=== PATIENT | female | born 1960 | race African-American/Black ===

== ENCOUNTER 2023-04-16 04:19 | Day surgery (SDC) | payer BC, OTHER ==
[2023-04-11 13:24] VITALS: BMI 25.7
[2023-04-16] MEDS ORDERED: MIDAZOLAM HCL 2 MG/2 ML SINGLE DOSE VIAL ONE ×2 (12:11→12:14)
[2023-04-16 12:50] VITALS: PULSE 72
[2023-04-16 14:14] VITALS: BP 138/89; TEMP 97.5
[2023-04-16 14:17] VITALS: RESP 20
[2023-04-16] MEDS ORDERED: ZOLPIDEM TARTRATE 5 MG TABLET PO ONE (22:00)
== END 2023-04-16 14:34 | disposition home or self-care (01) ==
LOC: JASU-SURG 04:19
PROVIDERS: ATTEND Urology
PROC: 0TF4XZZ Fragmentation in Left Kidney Pelvis, External Approach (ICD-10-PCS; principal; 2023-04-16 11:30)
DX: N20.0 Calculus of kidney (principal)

== ENCOUNTER 2023-07-23 04:31 | Day surgery (SDC) | payer BC, OTHER ==
[2023-07-16 12:33] VITALS: BMI 26.2
[2023-07-23] MEDS ORDERED: MIDAZOLAM HCL 2 MG/2 ML SINGLE DOSE VIAL ONE (15:32)
[2023-07-23] MEDS ORDERED: FENTANYL CITRATE/PF 50 MCG/ML VIAL ONE (16:04)
[2023-07-23] MEDS ORDERED: ONDANSETRON 4 MG/2 ML VIAL ONE (16:04)
[2023-07-23] MEDS ORDERED: KETOROLAC TROMETHAMINE 30 MG/1 ML VIAL ONE (16:04)
[2023-07-23 16:44] VITALS: RESP 18
[2023-07-23 17:25] VITALS: BP 98/65; TEMP 98.6
[2023-07-23 17:26] VITALS: PULSE 70
== END 2023-07-23 17:20 | disposition home or self-care (01) ==
LOC: JASU-SURG 04:31
PROVIDERS: ATTEND Urology
PROC: 0TF3XZZ Fragmentation in Right Kidney Pelvis, External Approach (ICD-10-PCS; principal; 2023-07-23 16:00)
DX: N20.0 Calculus of kidney (principal)

== ENCOUNTER 2024-06-15 19:00 | Emergency (ER) | payer BC, OTHER ==
[2024-06-15 19:09] VITALS: RESP 18; BMI 23.3
[2024-06-15] MEDS ORDERED: IBUPROFEN 600 MG TABLET (FP) PO ONE (19:25)
[2024-06-15] MEDS: IBUPROFEN 600 MG TABLET (FP) PO ONE (19:26)
[2024-06-15] MEDS ORDERED: ACETAMINOPHEN INJECTION 100 ML ONE (19:56)
[2024-06-15] MEDS: SODIUM CHLORIDE 0.9% 500 ML INFUS.BAG IV ONE (20:15)
[2024-06-15] MEDS: ACETAMINOPHEN 1000 MG/100 ML BAG IVPB ONE (20:15)
[2024-06-15] MEDS ORDERED: AZITHROMYCIN 500 MG VIAL IVPB ONE (20:28)
[2024-06-15 20:36] LABS: HEMATOCRIT 39.3 % (34.1-44.9); MCHC 33.1 g/dl (32.2-35.5); MEAN CELL VOLUME 89.1 fl (79.4-94.8); MEAN PLT VOLUME 9.4 fl (9.4-12.3); PLATELET COUNT 235 x10^3/uL (182-369); RDW 13.5 % (12.4-16.4)
[2024-06-15] MEDS: AZITHROMYCIN IVPB 500 MG in DEXTROSE 5%-WATER - 250 ML IVPB ONE (20:38)
[2024-06-15 20:48] LABS: ALBUMIN 4.2 g/dl (3.4-5.0); ALK PHOS 44 U/L (45-117); ANION GAP 8 mmol/L (4-13); BILIRUBIN,TOTAL 0.4 mg/dl (0.2-1); CHLORIDE 102 mmol/L (98-107); CO2 25 mmol/L (21-32); CREATININE 0.9 mg/dl (0.6-1.3); GLUCOSE,RANDOM 97 mg/dl (74-106); SGOT/AST 27 U/L (15-37); SGPT/ALT 21 U/L (7-52); SODIUM 135 mmol/L (136-145); TOT PROT 6.6 g/dl (6.4-8.2)
[2024-06-15 21:03] VITALS: BP 91/61; PULSE 94; TEMP 100.6
[2024-06-16 00:40] LABS: HIV INTERPRETATION NEGATIVE (NEGATIVE)
[2024-06-16 00:42] LABS: HCV DIAGNOSTIC IN-HOUSE W/RFLX NON-REACTIVE (NONREACTIVE)
== END 2024-06-15 22:16 | disposition home or self-care (01) ==
LOC: FER 19:00
PROC: 3E033NZ Introduction of Analgesics, Hypnotics, Sedatives into Peripheral Vein, Percutaneous Approach (ICD-10-PCS; principal; 2024-06-15)
PROC: 3E03329 Introduction of Other Anti-infective into Peripheral Vein, Percutaneous Approach (ICD-10-PCS; 2024-06-15)
DX: J18.9 Pneumonia, unspecified organism (principal); R50.9 Fever, unspecified; R05.9 Cough, unspecified
CPT/HCPCS: 0241U-QW; 36415; 71045-TC-FY; 80053; 85027; 86803; 87040; 87389; 93005; 99285-25; J0131